=== PATIENT | female | born 1965 | race Caucasian/White ===

== ENCOUNTER → 2017-03-03 | Outpatient (CLI) | payer BC | LOC: MC.RAD 11:20 | DX: Z12.31 Encounter for screening mammogram for malignant neoplasm of breast (principal) ==

== ENCOUNTER 2017-07-06 12:24 | Emergency (ER) | payer OTHER, BC ==
[~2017-07-06] VITALS: Ht 165.1 cm; Wt 61.4 kg
[2017-07-06 12:47] VITALS: TEMP 97.9
[2017-07-06 13:25] VITALS: BP 164/62; PULSE 77
== END 2017-07-06 13:27 | disposition home or self-care (01) ==
LOC: COL.ER 12:24
DX: S16.1XXA Strain of muscle, fascia and tendon at neck level, initial encounter (principal); V49.40XA Driver injured in collision with unspecified motor vehicles in traffic accident, initial encounter; Y93.I9 Activity, other involving external motion

== ENCOUNTER → 2018-04-27 | Outpatient (CLI) | payer BC | LOC: MC.RAD 13:00 | DX: Z12.31 Encounter for screening mammogram for malignant neoplasm of breast (principal); N64.89 Other specified disorders of breast ==

== ENCOUNTER → 2018-05-01 | Outpatient (CLI) | payer BC | LOC: MC.RAD 07:27 | DX: R92.8 Other abnormal and inconclusive findings on diagnostic imaging of breast (principal) | CPT/HCPCS: G0279 ==